=== PATIENT | male | born 1965 | race Caucasian/White ===

== ENCOUNTER → 2020-12-17 06:51 | Outpatient (CLI) | payer OTHER, SELFPAY ==
[2020-12-17 20:53] LABS: SARS-CoV-2 RNA PCR Negative
== END ==
PROVIDERS: PCP Internal Medicine; Visit Provider Internal Medicine Gastroenterology
DX: Z01.812 Encounter for preprocedural laboratory examination (principal); Z20.822 Contact with and (suspected) exposure to COVID-19
CPT/HCPCS: C9803; U0003; U0005

== ENCOUNTER 2020-12-21 04:49 | Day surgery (SDC) | payer OTHER, SELFPAY ==
[2020-12-14 11:21] VITALS: BMI 34.0
[2020-12-21 08:55] VITALS: BP 97/76; PULSE 100; RESP 20; TEMP 36.1; O2SAT 98
[2020-12-21] MEDS: LACTATED RINGERS 1,000 ML 150 ML IV CONT (09:05)
--- NOTE | 2020-12-21 09:17 | WPDANESEPPF ---
Anes - Initial Pre Proc Eval Procedure: Operation Date: 12/21/20 10:00 Proposed Procedures p Esophagogastroduodenoscopy And Screening Colonoscopy - Agustin Landin MD Date/Time: 12/21/20 09:17 Surgeon: Agustin Landin MD Pre Op Diagnosis: neoplasm screening, dysphagia Patient Data Age: 55 Gender: M Height: 5 ft 9 in Weight: 96.2 kg Last Vital Signs Temp 97.0 F L 12/21/20 08:55 Pulse 100 12/21/20 08:55 Resp 20 12/21/20 08:55 BP 97/76 L 12/21/20 08:55 Pulse Ox 98 12/21/20 08:55 Allergies Allergy/AdvReac Type Severity Reaction Status Date / Time No Known Allergies Allergy Verified 12/21/20 08:52 Home Medications Medication Instructions Recorded Confirmed Type hydrocodone-acetaminophen 3 tablet PO TID 12/14/20 12/14/20 History lisinopril 20 mg PO DAILY 12/14/20 12/14/20 History Patient hx anesthesia problems: none Family hx anesthesia problems: none [facility] Past Medical History Medical History (Updated 12/21/20 @ 09:11 by Ravinder Kent MD) Hypertension Social History Social History (Updated 12/02/20 @ 14:24 by Agustin Landin MD) Smoking packs per day: 2 Smoking cigarettes per day: 40.0 Years smoked: 38 Smoking pack-years: 76.00 Smoking status: Former smoker Substance use type: does not use Living arrangements: with family Gender identity (if verbalized by the patient): Male Anes - Eval Final PreProcedure Day of Procedure 12/21/20 09:17 Patient weight: overweight Heart: regular rate and rhythm Lungs: clear to auscultation Airway: Mallampati scale class II Neurological: alert and oriented Last oral intake: >/= 8 hours ASA classification: II Emergent: no Anesthetic plan: proceed Anesthesia type and monitoring: general GIVS and standard monitoring Informed Consent: The patient's anesthetic plan and its attendant risks and benefits were discussed with the patient/family/POA. Questions were solicited and answers provided to the satisfaction of the patient/family/POA.
--- NOTE | 2020-12-21 09:28 | PM.HPGS ---
History of Present Illness History of Present Illness Consent: Risks, benefits, and alternatives have been discussed and questions answered. Patient agrees to proceed with procedure. Chief complaint: neoplasm screening, dysphagia Narrative: Amor Nazario is a 55 year old male with dysphagia for solid food. This began about 1 year ago. He has a history of having had a stricture dilated about 10 years ago. He is also due for colon cancer screening Review of Systems Review of Systems: All systems reviewed & are unremarkable except as noted in HPI and below PMFSH Past Medical History Medical History Hypertension Social History Social History Smoking packs per day: 2 Smoking cigarettes per day: 40.0 Years smoked: 38 Smoking pack-years: 76.00 Smoking status: Former smoker Substance use type: does not use Living arrangements: with family Gender identity (if verbalized by the patient): Male Meds Home Medications and Allergies Home Medications Medication Instructions Recorded Confirmed Type hydrocodone-acetaminophen 3 tablet PO TID 12/14/20 12/14/20 History lisinopril 20 mg PO DAILY 12/14/20 12/14/20 History Allergies Allergy/AdvReac Type Severity Reaction Status Date / Time No Known Allergies Allergy Verified 12/21/20 08:52 Vital Signs Vital Signs - 24 hr 12/21/20 08:55 Temperature 36.1 C L Pulse Rate 100 Respiratory Rate 20 Blood Pressure 97/76 L Pulse Oximetry 98 Exam Const: General: alert Orientation/consciousness: patient oriented x3 Resp: Auscultation: clear to auscultation bilaterally Cardio: Rhythm: regular rhythm GI: GI Palp: Yes Soft to palpation and No Tenderness to palpation present (GI) Neuro: General: patient oriented x3 Assessment and Plan Assessment and plan (1) Colon cancer screening: Code(s): Z12.11 - Encounter for screening for malignant neoplasm of colon Status: Acute Assessment and Plan: Colonoscopy with possible biopsy or polypectomy or cautery or injection of substances. (2) Dysphagia: Code(s): R13.10 - Dysphagia, unspecified Status: Acute Assessment and Plan: EGD with possible biopsy or dilatation or cautery.
[2020-12-21 09:35] VITALS: BP 125/79
--- NOTE | 2020-12-21 09:35 | SUR.PREOP ---
FIRST BLOOD PRESSURE 97/76, PT TOOK LISINOPRIL THIS AM. PT ASSYMPTOMATIC AND STATES I FEEL FINE. DR ZAMORA MADE AWARE. NS BOLUS 500ML GIVEN PER ORDERS. REPEAT BLOOD PRESSURE 125/79. DR ZAMORA AWARE. NO NEW ORDERS
[2020-12-21 10:10] VITALS: BP 113/76; PULSE 98; RESP 22; O2SAT 96
[2020-12-21 10:20] VITALS: BP 114/79; PULSE 76; RESP 20; O2SAT 98
[2020-12-21 10:30] VITALS: BP 118/83; PULSE 80; RESP 22; O2SAT 97
== END 2020-12-21 10:53 | disposition home or self-care (01) ==
PROVIDERS: PCP Internal Medicine; Visit Provider Internal Medicine Gastroenterology
PROC: 0DJ08ZZ Inspection of Upper Intestinal Tract, Via Natural or Artificial Opening Endoscopic (ICD-10-PCS; CPT 43235; principal; 2020-12-21 10:00)
DX: Z12.11 Encounter for screening for malignant neoplasm of colon (principal); R13.10 Dysphagia, unspecified; D12.4 Benign neoplasm of descending colon; K22.2 Esophageal obstruction; K20.90 Esophagitis, unspecified without bleeding; K29.70 Gastritis, unspecified, without bleeding; K57.30 Diverticulosis of large intestine without perforation or abscess without bleeding; I10 Essential (primary) hypertension; Z87.891 Personal history of nicotine dependence
CPT/HCPCS: 43249; 43239; 45380; 87081; 88305; C1726; C9803; J2001; J2704; J7120; U0003; U0005

== ENCOUNTER 2021-02-08 18:54 | Inpatient (IN) | payer OTHER, SELFPAY ==
[2021-02-08] VITALS (22 sets, daily range): BP systolic 89–131; BP diastolic 57–72; PULSE 78–107; RESP 18–26; TEMP 36.7; O2SAT 96–100; BMI 28.3
--- NOTE | ~2021-02-08 | XR_ITS ---
XR chest 2V DATE: 02/08/2021 19:19 INDICATION: Shortness of breath, dizziness. Patient works around chemicals/fumes. Hypertension. TECHNIQUE: PA and lateral views COMPARISON: 03/11/2014 AP and lateral chest FINDINGS: Normal heart size. No hilar or mediastinal enlargement. There is minimal atelectasis at the lung bases. No pulmonary infiltrate or consolidation is noted ot herwise. No pleural effusion or pulmonary vascular congestion or pneumothorax. Degenerative spurring of the thoracic spine. IMPRESSION: Minimal atelectasis at the lung bases Reviewed, dictated and finalized at location A.
--- NOTE | ~2021-02-08 | US_ITS ---
US renal BI 02/09/2021 09:50 Procedure: Realtime transabdominal ultrasound of the kidneys and bladder. Indication: Dehydration. Acute renal insufficiency. Comparison: No prior studies for comparison. Findings: The left kidney is absent. Right kidney is enlarged measuring 17.2 cm. There are 2 hyperech oic areas in the medullary space of the right kidney with posterior shadowing, possibly renal stones. The bladder is not distended for evaluation due to catheterization. No hydronephrosis is identified. Impression: 1: Echogenic foci in the medullary space, possibly renal stones. Recommend correlation with CT. Reviewed, dictated and finalized at location A. Impression: 1: Echogenic foci in the medullary space, possibly renal stones. Recommend luis carlos elation with CT.
--- NOTE | 2021-02-08 19:00 | ECG_ITS ---
Measurements Intervals [place] Rate: 96 P: 18 AK: 160 QRS: -1 QRSD: 93 T: 21 QT: 290 QTc: 368 Interpretive Statements SINUS RHYTHM PEAKED T WAVES- CONSIDER HYPERKALEMIA OR ISCHEMIA BASELINE WANDER- II, III, V2, V4 ABNORMAL ECG Electronically Signed On 02-08-2021 19:41:30 CDT by Igor Adair D.O.
[2021-02-08 19:23] LABS: Basophils Absolute Auto 0.1 K/mm3 (0.0-0.1); Basophils Percent Auto 0.5 % (0.2-1.2); Eosinophils Percent Auto 0.3 % (0-4.4); Hematocrit 43.8 % (42.0-52.0); Hemoglobin 14.7 g/dL (14.0-18.0); Immature Granulocyte Absolute 0.13 K/mm3 (0.00-0.031); Immature Granulocyte Percent A 1.1 % (0-0.5); Lymphocytes Absolute Auto 0.71 K/mm3 (0.9-3.2); Lymphocytes Percent Auto 6.1 % (18.3-44.2); Mean Corpuscular HGB Conc 33.6 g/dl (32-36); Mean Corpuscular Hemoglobin 31.6 pg (26-34); Mean Corpuscular Volume 94.2 fl (80-100); Mean Platelet Volume 10.3 fl (7.4-10.4); Monocytes Absolute Auto 1.3 K/mm3 (0.1-0.6); Monocytes Percent Auto 11.5 % (2.6-8.5); Neutrophils Absolute Auto 9.3 K/mm3 (1.3-6.7); Neutrophils Percent Auto 80.5 % (45.5-73.1); Platelet Count Result 226 k/mm3 (150-375); Red Blood Count 4.65 M/mm3 (4.6-6.20); White Blood Count 11.6 K/mm3 (4.5-10.0)
[2021-02-08 19:41] LABS: Alanine Aminotransferase 19 U/L (4-50); Albumin Level 4.5 g/dL (3.5-5.1); Alkaline Phosphatase 50 U/L (38-126); Anion Gap 23 mmol/L (8-16); Aspartate Amino Transferase 23 U/L (17-59); Bilirubin,Total 0.4 mg/dL (0.2-1.3); Blood Urea Nitrogen 112 mg/dL (9-20); Calcium 7.7 mg/dL (8.4-10.2); Carbon Dioxide 17 mmol/L (22-30); Chloride 91 mmol/L (98-107); Estimated CRCL calculation 8 ml/min; Estimated Glomerular Filt Rate 5; Glucose 106 mg/dL (75-110); Potassium 6.9 mmol/L (3.4-5.0); Sodium 131 mmol/L (137-145)
[2021-02-08 20:22] LABS: Add Urine Microscopic? YES; Amorphous Sediment Urine Few; Appearance Urine Cloudy (Clear); Bacteria Urine Trace /hpf; Bilirubin Urine Negative (Negative); Blood Urine 1+ (Negative); Color Urine Amber (Yellow); Glucose Urine UA Negative (Negative); Ketones Urine Negative (Negative); Leukocyte Esterase Ur Trace LEU/UL (Negative); Mucus Urine Rare /lpf; Nitrate Urine Negative (Negative); Protein Urine 2+ mg/dL (Negative); Specific Grav Ur 1.021 (1.001-1.035); Squamous Epithelial Cell Urine Rare /hpf (Few); Urobilinogen Urine Negative mg/dL (<2.0)
[2021-02-08] MEDS: CALCIUM GLUCONATE 1,000 MG/10 ML VIAL 1000 MG IV PUSH (20:24)
[2021-02-08] MEDS: INSULIN HUMAN REGULAR (*BKC) 100 UNITS/ML 10 UNITS IV PUSH (20:24)
[2021-02-08] MEDS: DEXTROSE 50% 25 GM/50 ML SYRINGE IV PUSH (20:25)
[2021-02-08] MEDS: SODIUM CHLORIDE 0.9% IV 1,000 ML 999 ML IV CONT (20:25)
[2021-02-08] MEDS: SODIUM CHLORIDE 0.9% IV 1,000 ML 150 ML IV CONT (20:30)
[2021-02-08 20:47] LABS: Creatine Kinase 285 U/L (55-170)
[2021-02-08 20:53] LABS: Base Excess ABG -10.3 mEq/l (+/-2.0); Device ROOM AIR; Fractional Inspired Oxygen 21 %; HCO3 ABG 14.1 mEq/l (22.0-26.0); Oxygen Content ABG 18.9 %vol (16.0-22.0); Oxygen Saturation ABG 95.2 % (95.0-100.0); Oxyhemoglobin 94.3 % THb (90.0-100.0); PCO2 ABG 27.9 mmHg (35.0-45.0); PO2 ABG 80.3 mmHg (80.0-100.0); PO2 FiO2 Ratio Arterial Blood 3.82 %; Site Drawn RIGHT BRACHIAL; Total Hemoglobin 14.2 g/dL (12.0-18.0); pH ABG 7.322 (7.350-7.450)
--- NOTE | 2021-02-08 21:07 | PC.NURSE ---
Bladder scan shows 67 mls. Cuevas cath to be placed.
--- NOTE | 2021-02-08 21:23 | ED.DIZZY ---
HPI - Dizziness General Chief Complaint: Dizziness Stated Complaint: dizzy, dehydrated Time Seen by Provider: 02/08/21 20:11 Source: patient Mode of arrival: ambulatory Limitations: no limitations History of Present Illness HPI Narrative: 55-year-old with a history of hypertension and was born with one kidney here with complaints of dizziness since this morning. 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 He denies any chest pain, shortness of breath or abdominal pain. MD elicited complaint: dizziness Onset (ago): day(s) (1) Timing: gradual onset Severity: moderate Exacerbating factors: nothing Relieving factors: nothing Related Data Home Medications Medication Instructions Recorded Confirmed hydrocodone-acetaminophen 3 tablet PO TID 12/14/20 12/14/20 lisinopril 20 mg PO DAILY 12/14/20 12/14/20 Allergies Allergy/AdvReac Type Severity Reaction Status Date / Time No Known Allergies Allergy Verified 12/21/20 08:52 Review of Systems Review of Systems: All systems reviewed & are unremarkable except as noted in HPI and below Constitutional: Constitutional: Reports no additional constitutional complaints Eyes: Eyes: Reports no additional eye complaints ENT: Reports system reviewed and no additional complaints, except as documented Cardiovascular: Cardiovascular: Reports no additional cardiovascular complaints Respiratory: Respiratory: Reports no additional respiratory complaints Gastrointestinal: Gastrointestinal: Reports as per HPI Musculoskeletal: Musculoskeletal: Reports no additional musculoskeletal complaints Integumentary/Breasts: Skin/Breast: Reports system reviewed and no additional complaints, except as docu Neurologic: Reports system reviewed and no additional complaints, except as documented Endocrine: Endocrine: Reports no additional endocrine complaints [facility] Past Medical History Medical History Hypertension Social History Social History Smoking packs per day: 2 Smoking cigarettes per day: 40.0 Years smoked: 38 Smoking pack-years: 76.00 Smoking status: Former smoker Substance use type: does not use Gender identity (if verbalized by the patient): Male Exam Narrative: Exam Narrative: GENERAL: Well-appearing, well-nourished, and in no acute distress. HEAD: Normocephalic, atraumatic. EYES: PERRLA and EOMI. ENT: Nares clear, . Mucous membranes moist. NECK: Supple. CHEST: Clear to auscultation. No respiratory distress. HEART: Regular rate and rhythm. No murmur heard. Normal peripheral pulses. ABDOMEN: Soft, nontender, nondistended, normal active bowel sounds. EXTREMITIES: Normal range of motion. No edema. SKIN: Warm, dry, no rash. NEURO: No focal deficits. Alert and oriented x3. PSYCH: Normal mood and affect. Course Course Emergency Course: Inform patient about his lab work. Discussed case with Dr. Anthony recommended bicarb drip, discussed with Dr. Wesley and Dr. Armendariz and. Will admit him to ICU. Vital Signs Vital signs: Vital Signs Temperature 36.7 C 02/08/21 19:01 Pulse Rate 98 02/08/21 19:01 Respiratory Rate 21 H 02/08/21 19:01 Blood Pressure 110/60 02/08/21 19:01 Pulse Oximetry 98 02/08/21 19:01 Temperature 36.7 C 02/08/21 19:01 Pulse Rate 89 02/08/21 21:16 Respiratory Rate 24 H 02/08/21 21:16 Blood Pressure 131/63 02/08/21 21:16 Pulse Oximetry 98 02/08/21 21:00 MDM - Dizziness Lab Data Result diagrams: 02/08/21 19:05 02/08/21 19:05 Labs: Lab Results 02/08/21 02/08/21 02/08/21 Range/Units 19:05 19:05 19:05 WBC 11.6 H (4.5-10.0) K/mm3 RBC 4.65 (4.6-6.20) M/mm3 Hgb 14.7 (14.0-18.0) g/dL Hct 43.8 (42.0-52.0) % MCV 94.2 (80-100) fl
[2021-02-08] MEDS: SODIUM BICARBONATE 8.4% 50 MEQ/50 ML SYRINGE IV PUSH (21:24)
[2021-02-08] MEDS: SODIUM BICARBONATE 8.4% 150 MEQ in DEXTROSE 5% 1,000 ML 950 ML 100 MEQ IV CONT (21:45)
--- NOTE | 2021-02-08 23:26 | ADMIMU ---
This patient, Amor Nazario, was admitted to ICU status, and placed in Intensive Care Unit-7 on 02/08/21 at 2240. Patient/family oriented to hospital policies and general routines including ID bracelet, bed and alarms, visiting hours, pain management, procedures, bathroom and other care routines, personal items, smoking policy, room service/diet, and visiting hours. Information on how to activate the Rapid Response Team has been discussed. Patient/Family are encouraged to report perceived risks to care and to ask questions if they do not understand what they are told or what they should do.
--- NOTE | 2021-02-08 23:37 | PM.IMHP ---
H&P: HPI History of Present Illness Date/Time: 02/08/21 23:37 Chief Complaint: Dizziness, dehydration and weakness Narrative: 55-year-old male with past medical history of congenital unilateral kidney, low testosterone and hypertension who presented to the ER with dizziness, dehydration and weakness. 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 After couple hours of work he had to go inside and changes close. He has a changes close a total of 3 times due to the amount he was sweating. When he went inside changes close the 1st time he was already starting to have shaking and shortly thereafter began having muscle cramps. He reports that he lost 7 lb in 1 day due to sweating. He was drinking Gatorade and water. He thought he was drinking enough fluid. 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 He worked 12 hour days. Approximately 3 days ago he started having difficulty urinating. He was only urinating about a tbsp at a time in his urine was dark in color. He continued to be dizzy and generally weak throughout the entire course of his illness. He denied any dysuria or hematuria. He had developed the severe generalized headache 3 days ago was well. One day ago he began having severe nausea and dry heaves which ultimately brought him to the ER. He denies any fevers or chills. He has not had any cough or congestion. He denies chest pain or palpitations. He was having some shortness of breath in the ER but this is resolved after IV fluid hydration. The patient reports that his headache has also resolved after receiving IV fluids. He is already drink close to a L of water since admission. He has had about 700 mL out of his Cuevas catheter. He was told about 10 or 15 years ago that he had a unilateral kidney when he went in for evaluation due to hematuria. He reports that he has had ?scopes? to look at his bladder and kidneys before. He does not know which side his kidney is on. He received both of his COVID vaccines couple of months ago. He thinks he may have had COVID last spring. Review of Systems Review of Systems: Narrative: 12 systems were reviewed with pertinent positives and negatives per HPI. Except as documented in the HPI, all other systems were reviewed and are negative. [facility] Past Medical History Medical History (Updated 02/09/21 @ 00:43 by Analy Armendariz DO) Esophageal stricture Gastritis Hypertension Unilateral congenital absence of kidney Surgical History Surgical History (Updated 02/08/21 @ 23:41 by Analy Armendariz DO) History of colonoscopy with polypectomy (12/21/20) Diverticulosis and colon polyps. Performed by Dr. Landin S/P balloon dilatation of esophageal stricture (~12/21/20) Family History Family History (Updated 02/09/21 @ 00:35 by Analy Armendariz DO) Father , 45 years old Lung cancer Smoker Asbestosis Sibling Leukemia, Onset Age: 55 Mother Smoker Lung cancer, Onset Age: 75 Social History Social History (Updated 02/09/21 @ 00:37 by Analy Armendariz DO) Social History: Of 25 years. He has 3 biologic daughters and 1 stepdaughter. He is 6 grand children. 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 He smoked up to 2 packs per day for 35 years but quit smoking in 2018. Primary care physician: Dr. Domingo Garcia Code status: Full code Surrogate decision maker: Smoking packs per day: 2 Smoking cigarettes per day: 40.0 Years smoked: 30 Smoking pack-years: 60.00 Smoking status: Former smoker Tobacco type: cigarettes Alcohol intake: current Drinks per week: 14 Substance use: never Substance use type: does not use Other substance usage details: drinks 2-3 beers a day Gender identity (if verbalized by the patient): Male Spiritual care concerns: No Meds Home Medications and Allergies Home Medications
[2021-02-08 23:49] LABS: Anion Gap 20 mmol/L (8-16); Blood Urea Nitrogen 114 mg/dL (9-20); Calcium 7.3 mg/dL (8.4-10.2); Carbon Dioxide 17 mmol/L (22-30); Chloride 93 mmol/L (98-107); Estimated CRCL calculation 8 ml/min; Estimated Glomerular Filt Rate 6; Glucose 97 mg/dL (75-110); Potassium 4.9 mmol/L (3.4-5.0); Sodium 130 mmol/L (137-145)
[2021-02-09] VITALS (11 sets, daily range): BP systolic 117–173; BP diastolic 62–76; PULSE 77–88; RESP 14–21; TEMP 36.5–37.2; O2SAT 90–99
[2021-02-09 04:52] LABS: Hematocrit 43.3 % (42.0-52.0); Mean Corpuscular HGB Conc 32.3 g/dl (32-36); Mean Corpuscular Hemoglobin 31.6 pg (26-34); Mean Corpuscular Volume 97.7 fl (80-100); Mean Platelet Volume 10.8 fl (7.4-10.4); Platelet Count Result 155 k/mm3 (150-375); Red Blood Count 4.43 M/mm3 (4.6-6.20); Red Cell Distribution Width 12.7 % (11.5-14.5)
[2021-02-09] MEDS: SODIUM BICARBONATE 8.4% 150 MEQ in DEXTROSE 5% 1,000 ML 950 ML IV CONT (05:14)
[2021-02-09 07:11] LABS: Anion Gap 14 mmol/L (8-16); Blood Urea Nitrogen 104 mg/dL (9-20); Calcium 7.4 mg/dL (8.4-10.2); Carbon Dioxide 22 mmol/L (22-30); Chloride 98 mmol/L (98-107); Estimated CRCL calculation 15 ml/min; Estimated Glomerular Filt Rate 10; Glucose 103 mg/dL (75-110); Magnesium 2.7 mg/dL (1.6-2.3); Phosphorus 7.1 mg/dL (2.5-4.5); Potassium 4.4 mmol/L (3.4-5.0); Sodium 134 mmol/L (137-145)
[2021-02-09] MEDS: HYDROcodone/acetaminophen (*CRX) 7.5-325 MG TABLET 3 TAB PO (08:37)
[2021-02-09] MEDS: SODIUM CHLORIDE 0.9% IV 500 ML IV CONT (08:39)
[2021-02-09] MEDS: PANTOPRAZOLE 40 MG TABLET PO ×2 (08:42→16:22)
--- NOTE | 2021-02-09 09:10 | WPDCNINT ---
Assessment and Plan Assessment and plan (1) JOSEP (acute kidney injury): Code(s): N17.9 - Acute kidney failure, unspecified Status: Acute Assessment and Plan: Acute kidney injury likely related to dehydration, excessive sweating, decreased p.o. intake, presence of only onekidney -patient was adequately hydrated, creatinine and BUN trending down -acidosis has resolved which was likely due to uremia -patient has had excellent urine output -nephrology is following the patient -renal ultrasound has been ordered -continue monitor urine output, renal function electrolytes (2) Acute hyperkalemia: Code(s): E87.5 - Hyperkalemia Status: Acute Assessment and Plan: Patient was treated with sodium bicarbonate and Kayexalate for hyperkalemia -hyperkalemia improved this morning with a potassium of 4.4 (3) High anion gap metabolic acidosis: Code(s): E87.2 - Acidosis Status: Acute Assessment and Plan: Resolved Additional Plan Discussed with patient updated with his condition and plan of care I also updated with lab results. Code status: Full code Critical care time spent: 39 minutes This dictation may have been done utilizing a voice recognition system. Attempts have been made to correct errors. However, there may be uncorrected grammatical, spelling, and recognition errors present. Due to a high probability of clinically significant, life threatening deterioration, the patient required my highest level of preparedness to intervene emergently and I personally spent this critical care time directly and personally managing the patient. This critical care time included obtaining a history; examining the patient; pulse oximetry; ordering and review of studies; arranging urgent treatment with development of a management plan; evaluation of patient's response to treatment; frequent reassessment; and discussions with other providers. It was exclusive of separately billable procedures and treating other patients and teaching time. Please see Assessment and Plan section and the rest of the note for further information on patient assessment and treatment Dietitian Chief Consult Note Consult date: 02/09/21 Time Seen: 07:06 Reason for consult: Acute kidney injury, hyperkalemia, hypovolemia, weakness HPI: Amor Nazario is a 55 year old male with past medical history of esophageal stricture, gastritis, hypertension, unilateral congenital absence of kidney presented the ED with generalized weakness, dehydration, dizziness, oliguria. Patient also complained of nausea and muscle cramps. According the patient he has been doing some yd work and landscaping at home been out in the heat. 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 He has been having difficulty urinating, as stated he probably urinate about tbsp at a time. Urine was dark in color. In the ER was found to be in acute renal failure with a creatinine 11.1 BUN of 112, sodium of 131, potassium 6.9 and CO2 of 17. Patient received IV fluids, Kayexalate and was started on sodium bicarbonate maintenance IV fluids. Nephrology has been consulted and patient was transferred to the ICU for further management. Patient seen and examined this morning, states he feels much better, urine output has been good, creatinine down to 5.90 (11.10 on admission), BUN is 104. CO2 is 22. Patient remains on sodium bicarb infusion. Denies any abdominal pain, nausea, vomiting, cramps. Does complain of headache. Patient is hemodynamically stable, on room air with good O2 sats Review of Systems Review of Systems: All systems reviewed & are unremarkable except as noted in HPI and below [facility] Past Medical History Medical History (Updated 02/09/21 @ 00:43 by Analy Armendariz DO) Esophageal stricture Gastritis Hypertension Unilateral congenital absence of kidney Surgical History Surgical History (Updated 02/08/21 @ 23:41 by Siva
--- NOTE | 2021-02-09 12:43 | PM.CNNEP ---
Assessment and Plan Additional Plan Acute kidney injury: the patient has a very high BUN and creatinine. On physical exam and by history it sounds like he was dehydrated. He has been getting IV fluids. His urine output has picked up and his creatinine has come down. He only has a solitary kidney but this should physiologically act like he had two kidneys since he was born with only 1 kidney because the other kidney generally hypertrophies to make up for it. His ultrasound did not show hydronephrosis but it did show echogenic focus in the renal pelvis possibly stone? Consider CT down the line. His CPK was only mildly elevated so rhabdo is not playing a role in his renal disease. Other possibilities for etiology include glomerulonephritis and interstitial nephritis but I think these are unlikely in this clinical scenario. Hyperkalemia: His potassium was 6.9 on admission. He received some Kayexalate and other interventions and his potassium is normal now metabolic acidosis: He had a positive anion gap. This was most likely due to the uremic toxins. He received some bicarbonate. This is improved. His bicarbonate level is now 22. His anion gap is now down to 14. Hyponatremia: Sodium level is slightly low, probably from the dehydration and water drinking. Gastritis. The patient is on a PPI Esophageal stricture status post recent dilatation. Hypertension. His blood pressures been well controlled. This is been going on for about 3 years. he is a former smoker. History of Present Illness Reason for Consult Consult date: 02/09/21 Chief Complaint Chief complaint: JOSEP, Hyperkalemia History of Present Illness Narrative: Amor is a very pleasant 55-year-old gentleman who has hypertension, esophageal stricture status post dilatation a few weeks ago, congenital solitary kidney, and gastritis. A few weeks ago he had endoscopies and colonoscopy which were uneventful. He had a dilatation of his esophagus but otherwise things were okay according to him. On Saturday the patient did lots of landscaping at his house. He felt poorly by the end of the day. He did a little more landscaping on Saturday apparently and felt worse. He drink lots of fluid thinking he was dehydrated. He went to work on Saturday and felt poorly all day. His urged him to go to the emergency room or least get checked out but he refused to go. This continued until yesterday when he felt bad enough to just go to the hospital. He was evaluated in the emergency room and found to be dehydrated. his blood pressure was somewhat soft and even dipped into the 80s at 1 point. His labs showed high BUN creatinine and potassium and low bicarbonate. He was given IV fluids and admitted to the ICU. He says he was not making much urine before he came in but he started making urine since he got fluids. He was taking Advil p.m. every night to help him cell sleep including during this illness. No bloody urine, foamy urine, kidney stones, or bladder infections. He was born with only 1 kidney. He used to smoke but does not anymore. He does not drink alcohol. Review of Systems Constitutional: Constitutional: Reports no additional constitutional complaints Eyes: Eyes: Reports no additional eye complaints ENT: Reports system reviewed and no additional complaints, except as documented Cardiovascular: Cardiovascular: Reports no additional cardiovascular complaints Respiratory: Respiratory: Reports no additional respiratory complaints Gastrointestinal: Gastrointestinal: Reports no additional gastrointestinal complaints Genitourinary: Genitourinary: Reports no additional male genitourinary complaints Musculoskeletal: Musculoskeletal: Reports no additional musculoskeletal complaints Integumentary/Breasts: Skin/Breast: Reports system reviewed and no additional complaints, except as docu Neurologic: Reports system reviewed and no additional com
[2021-02-09] MEDS: SODIUM CHLORIDE 0.9% IV 1,000 ML 100 ML IV CONT ×2 (13:05→22:39)
[2021-02-09] MEDS: HYDROcodone/acetaminophen (*CRX) 7.5-325 MG TABLET 1 TAB PO (16:16)
--- NOTE | 2021-02-09 17:57 | PC.NURSE ---
This patient, Amor Nazario, was transferred to [facility] on 02/09/21 at 1750 via wheelchair without issue. Personal belongings sent with patient. Report given to JAY Steel @ [id number]. Appropriate documentation sent with patient.
[2021-02-09] MEDS: ACETAMINOPHEN 325 MG TABLET 650 MG PO (18:36)
[2021-02-09] MEDS: amLODIPine BESYLATE 5 MG TABLET 10 MG PO (20:23)
[2021-02-10] MEDS: HYDROcodone/acetaminophen (*CRX) 7.5-325 MG TABLET 1 TAB PO ×2 (00:08→08:17)
[2021-02-10 04:19] VITALS: BP 134/68; PULSE 72; RESP 18; TEMP 37.1; O2SAT 97
[2021-02-10] MEDS: ACETAMINOPHEN 325 MG TABLET 650 MG PO (05:05)
[2021-02-10 05:59] LABS: Basophils Absolute Auto 0.1 K/mm3 (0.0-0.1); Eosinophils Absolute Auto 0.1 K/mm3 (0-0.3); Eosinophils Percent Auto 1.4 % (0-4.4); Hematocrit 41.3 % (42.0-52.0); Hemoglobin 13.7 g/dL (14.0-18.0); Immature Granulocyte Absolute 0.05 K/mm3 (0.00-0.031); Immature Granulocyte Percent A 0.7 % (0-0.5); Lymphocytes Absolute Auto 1.44 K/mm3 (0.9-3.2); Lymphocytes Percent Auto 20.5 % (18.3-44.2); Mean Corpuscular HGB Conc 33.2 g/dl (32-36); Mean Corpuscular Hemoglobin 31.9 pg (26-34); Mean Platelet Volume 10.5 fl (7.4-10.4); Monocytes Absolute Auto 0.9 K/mm3 (0.1-0.6); Monocytes Percent Auto 13.2 % (2.6-8.5); Neutrophils Absolute Auto 4.4 K/mm3 (1.3-6.7); Neutrophils Percent Auto 63.2 % (45.5-73.1); Platelet Count Result 221 k/mm3 (150-375)
[2021-02-10 06:21] LABS: Albumin Level 3.6 g/dL (3.5-5.1); Anion Gap 8 mmol/L (8-16); Blood Urea Nitrogen 40 mg/dL (9-20); Calcium 8.1 mg/dL (8.4-10.2); Carbon Dioxide 27 mmol/L (22-30); Chloride 105 mmol/L (98-107); Estimated CRCL calculation 57 ml/min; Estimated Glomerular Filt Rate 48; Glucose 99 mg/dL (75-110); Magnesium 2.6 mg/dL (1.6-2.3); Potassium 5.5 mmol/L (3.4-5.0); Sodium 140 mmol/L (137-145)
[2021-02-10] MEDS: amLODIPine BESYLATE 5 MG TABLET 10 MG PO (08:10)
[2021-02-10] MEDS: PANTOPRAZOLE 40 MG TABLET PO (08:10)
[2021-02-10] MEDS: SODIUM CHLORIDE 0.9% IV 1,000 ML 100 ML IV CONT (08:12)
[2021-02-10 08:31] VITALS: O2SAT 96
--- NOTE | 2021-02-10 12:53 | PM.DS ---
DS: Admitting Diagnosis Admitting Diagnosis Admitting Diagnosis: Dizziness, dehydration and weakness DS: Discharge Diagnosis Discharge Diagnosis (1) JOSEP (acute kidney injury): Code(s): N17.9 - Acute kidney failure, unspecified Status: Acute Assessment and Plan: Acute kidney injury likely related to dehydration, excessive sweating, decreased p.o. intake, presence of only one kidney. Renal us shows Left kidney is absent and R kidney has stones pt will benefit from rpt BMp and CT scan. (2) Acute hyperkalemia: Code(s): E87.5 - Hyperkalemia Status: Resolved Assessment and Plan: Resolved with Kalexate (3) High anion gap metabolic acidosis: Code(s): E87.2 - Acidosis Status: Resolved Assessment and Plan: Resolved with fluids DS: Summary Hospital Course Hospital Course: 55-year-old male with past medical history of congenital unilateral kidney, low testosterone and hypertension who presented to the ER with dizziness, dehydration and weakness. Pt did well with fluid hydration. Can be discharged today. Time Spent with Patient Time attestation: Total time spent providing and/or coordinating discharge services:40 minutes on day of dischrage Exam Narrative: Exam Narrative: PHYSICAL EXAM: General: No acute distress Respiratory: Clear to auscultation bilaterally, no increased work of breathing Cardiovascular: Regular rate, regular rhythm, 2+ bilateral radial pedal pulses Gastrointestinal: Soft, nontender, nondistended, positive bowel sounds Musculoskeletal: No clubbing, cyanosis or edema Neurological: Alert and oriented, speech is clear, no localizing neurologic deficits noted on limited exam Psychiatric: Appropriate mood and affect, pleasant and cooperative DS: Data Data Completed and Pending Labs on day of discharge: Labs from last 24 hours 02/10/21 02/10/21 05:31 05:31 WBC 7.0 RBC 4.30 L Hgb 13.7 L Hct 41.3 L MCV 96.0 MCH 31.9 MCHC 33.2 RDW 13.0 Plt Count 221 MPV 10.5 H Immature Gran % (Auto) 0.7 H Neut % (Auto) 63.2 Lymph % (Auto) 20.5 [place] % (Auto) 13.2 H Eos % (Auto) 1.4 Baso % (Auto) 1.0 Lymph # (Auto) 1.44 [place] # (Auto) 0.9 H Eos # (Auto) 0.1 Baso # (Auto) 0.1 Abs Immat Gran (auto) 0.05 H Absolute Neuts (auto) 4.4 Absolute Nucleated RBC 0.0 Nucleated RBC % 0.0 Sodium 140 Potassium 5.5 H Chloride 105 Carbon Dioxide 27 Anion Gap 8 BUN 40 H D Creatinine 1.50 H D Estim Creat Clear Calc 57 Estimated GFR 48 L Glucose 99 Calcium 8.1 L Phosphorus 3.0 Magnesium 2.6 H Albumin 3.6 Discharge Plan Discharge Attending physician on discharge: Seema Lowe Consulting providers: Parviz Anthony ; Susi Foley Discharging Clinician: Seema Lowe Anticipated Discharge Date/Time: 02/10/21 12:06 Patient Disposition: Home, Self-Care Activity: as tolerated Diet: heart healthy Discharge Instructions: DRINK PLENTY OF WATER Patient Instructions: Antibiotic Form Stand Alone Forms: General Discharge Information Follow-up/Referrals: Jose,Domingo Soto MD [Primary Care Provider] - Girish Forrester MD [Physician] - (FOLLOW IN 2-3 weeks time RPT [facility] at that time ) Discharge Medications: New amlodipine [Norvasc] 5 mg Tablet 10 mg PO QAM Qty: 30 RF: 0 Continued Xyosted 50 mg/0.5 mL auto-injector 50 mg SUBCUT WEEKLY RF: 0 lisinopril 20 mg tablet 20 mg PO DAILY RF: 0 hydrocodone-acetaminophen 7.5-325 mg tablet 1 tablet PO Q8H PRN (Reason: Pain, Moderate) RF: 0 omeprazole 40 mg capsule,delayed release(DR/EC) 40 mg PO DAILY Qty: 90 RF: 1 Date of admission: 02/08/21 21:39 Primary Care Provider: Manfred,Domingo Soto Admitting Provider: Analy Armendariz Attending physician on admission: Analy Armendariz Condition: Stable
[2021-02-10] MEDS: SODIUM POLYSTYRENE SULFONONATE 15 GM/60 ML BTL PO (13:10)
== END 2021-02-10 14:30 | disposition home or self-care (01) | DRG 683 ==
LOC: ANHED 21:38 → ANHICU 02-09 09:46 → ANH2MED 02-10 12:32 → ANHICU 02-14 12:19
PROVIDERS: Emergency Medicine Emergency Medical Services; Internal Medicine; Admitting Provider Internal Medicine; Emergency Provider Family Medicine; PCP Internal Medicine; Visit Provider Family Medicine
DX: N17.9 Acute kidney failure, unspecified (principal); E87.2 Acidosis; Q60.0 Renal agenesis, unilateral; E86.0 Dehydration; E87.5 Hyperkalemia; I10 Essential (primary) hypertension; K29.70 Gastritis, unspecified, without bleeding; Z87.891 Personal history of nicotine dependence
CPT/HCPCS: 36415; 36600; 71046; 76775; 80048; 80053; 81001; 82040; 82550; 82805; 83735; 84100; 85025; 85027; 93005; 96361; 96374; 96375; 99285; A9270; J0610; J1815; J7030; J7040; J7070

== ENCOUNTER 2022-08-10 10:42 | Outpatient (CLI) | payer OTHER, SELFPAY ==
--- NOTE | ~2022-08-10 | CT_ITS ---
EXAMINATION: CT soft tissue neck w con DATE: 08/10/2022 11:19 INDICATION: Localized swelling, mass and lump, neck. Mass in left parotid gland. TECHNIQUE: Computed tomography (CT) of the neck was performed with 100 mL Omnipaque-350 intravenous c ontrast. Automated exposure control and iterative reconstruction technique were employed. The dose-le ngth product was 446.55 mGy-cm. COMPARISON: CT cervical spine 03/11/2014 FINDINGS: There is a 17 mm nodule in right thyroid lobe. There are enlarged bilateral high and mid in ternal jugular and left submandibular lymph nodes. Some of the lymph nodes demonstrate calcifications . 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 There is plaque in the proximal internal carotid arteries with 0% stenosis relative to normal distal artery l umen diameters. There is mucosal thickening in the pharynx and supraglottic larynx. There is mild muc osal thickening in the paranasal sinuses. The mastoid air cells are normal. There is moderate cervica l spondylosis. IMPRESSION: 1. Bilateral cervical lymphadenopathy, consistent with metastatic disease. Ultrasound-guided core nee dle biopsy of a left internal jugular lymph node is recommended. 2. Mucosal thickening in the pharynx and supraglottic larynx, which may be inflammation and/or malign jay. 3. 17 mm right thyroid nodule. Consider thyroid ultrasound for risk stratification. Reviewed, dictated and finalized at location A. ITY SYSTEM REPAIRER IMPRESSION: 1. Bilateral cervical lymphadenopathy, consistent with metastatic disease. Ultr asound-guided core needle biopsy of a left internal jugular lymph node is recom mended. 2. Mucosal thickening in the pharynx and supraglottic larynx, which may be infl ammation and/or malignancy. 3. 17 mm right thyroid nodule. Consider thyroid ultrasound for risk stratificat ion.
--- NOTE | ~2022-08-10 | CT_ITS ---
Contrast enhanced Head CT History: Localized swelling, mass Technique: Following intravenous administration of 100 cc of Omnipaque 350 contrast material, axial i maging of the brain was performed. Dose reduction technique was used on this scan by utilizing automa mikhail exposure control and iterative reconstruction technique. The dose-length product (DLP) was 599.57 mGy-cm. Findings: There is no evidence of intracranial hemorrhage, mass lesion, or acute infarct. Brain par enchyma appears normal. The ventricles and subarachnoid spaces are normal in size. The calvarium ap pears normal. The visualized paranasal sinuses and mastoid air cells are clear. No abnormal postcontrast enhancement identified. Impression: No significant abnormality seen. Reviewed, dictated and finalized at location [] UNT RECEIVABLE ASSOCIATE Impression: No significant abnormality seen.
--- NOTE | ~2022-08-10 | CT_ITS ---
EXAMINATION: CT lung screening DATE: 08/10/2022 11:19 INDICATION: Personal history of nicotine dependence, current smoker with 56 pack year history TECHNIQUE: Computed tomography (CT) of the chest was performed without intravenous contrast. The dose -length product (DLP) was 260.99 mGy-cm. Automated exposure control and iterative reconstruction tech [place] were employed. COMPARISON: None FINDINGS: Respiratory motion artifact moderately limits the examination. There is mild emphysema. No definite suspicious pulmonary nodules are identified. The lungs are free of acute opacities. No pleur al effusion or pneumothorax. There is calcified coronary artery atherosclerosis. No pathologically en larged thoracic lymph nodes are identified. The heart size is normal. There is moderate thoracic spon dylosis. IMPRESSION: 1. Lung-RADS category 1: Negative. Continue annual screening with noncontrast low-dose chest CT in 12 months. Reviewed, dictated and finalized at location A. GER CORPORATE STRATEGY IMPRESSION: 1. Lung-RADS category 1: Negative. Continue annual screening with noncontrast l ow-dose chest CT in 12 months.
[2022-08-10 11:01] LABS: Estimated Glomerular Filt Rate > 60
== END 2022-08-10 10:43 ==
LOC: MICIMG 10:43
PROVIDERS: PCP Internal Medicine; Visit Provider Internal Medicine
DX: R22.1 Localized swelling, mass and lump, neck (principal); Z12.2 Encounter for screening for malignant neoplasm of respiratory organs; Z87.891 Personal history of nicotine dependence
CPT/HCPCS: 70460; 70491; 71271; Q9967

== ENCOUNTER 2022-09-03 10:59 | Outpatient (CLI) | payer OTHER, SELFPAY ==
--- NOTE | ~2022-09-03 | US_ITS ---
EXAMINATION: US biopsy lymph node DATE: 09/03/2022 12:09 INDICATION: Cervical lymphadenopathy TECHNIQUE: The procedure including the risks and benefits was discussed with the patient. Risks discu ssed included bleeding and infection. The patient understood the risks and agreed to proceed. The sk in overlying the left neck was prepped and draped in usual sterile fashion. Anesthetic was administe red with 1% lidocaine subcutaneously. An 18 gauge core biopsy needle was advanced under continuous u ltrasound observation to the lesion of interest. 4 core biopsy specimens were obtained. The needle was removed and the entry site was cleaned and dressed. Post procedure ultrasound demonstrated no he morrhage. FINDINGS: Ultrasound images a 2.2 x 2.2 x 2.1 cm hypoechoic mass with irregular lobular margins along side an enlarged round 1.5 x 1.5 x 1.4 cm more hypoechoic lymph node. Subsequent images demonstrate the biopsy needle advanced into the larger more irregular mass. The needle is also passed to the fred cent lymph node on the final biopsy. IMPRESSION: 1. Successful Ultrasound-guided biopsy of an irregular 2.2 x 2.2 x 2.1 cm hypoechoic mass and adjacen t 1.5 cm left jugular chain lymph node. Reviewed, dictated and finalized at location A. K BOLTER MULE OPERATOR IMPRESSION: 1. Successful Ultrasound-guided biopsy of an irregular 2.2 x 2.2 x 2.1 cm hypoe choic mass and adjacent 1.5 cm left jugular chain lymph node.
== END 2022-09-03 11:00 | disposition home or self-care (01) ==
PROVIDERS: PCP Internal Medicine; Visit Provider Otolaryngology
DX: R59.0 Localized enlarged lymph nodes (principal); E04.1 Nontoxic single thyroid nodule; C44.42 Squamous cell carcinoma of skin of scalp and neck
CPT/HCPCS: 38505; 76942; 88305; 88342

== ENCOUNTER 2022-09-10 08:56 | Outpatient (RCR) | payer OTHER, SELFPAY ==
--- NOTE | 2022-09-10 11:01 | STOPEVAL1 ---
Assessment and note entered by Viola Esqueda, LUBRICATING SPECIALIST Evaluation Information Assessment Status Evaluation Diagnosis Oralpharyngeal dysphagia Onset appr. one year Subjective Information Patient and , who was present for this assessment, report complaints of sinus issues and and TMJ issues for approximately one year. They reported that he began experience sharp pain in the jaw when he had to chew, and he feels that his jaw (was going) out of alignment and therefore has to stop eating. When asked what he did to improve the jaw alignment, he stated it just returned to normal later. Patient reports his left jaw has always been swollen for the past year. reports patient uses mouth breathing when sleeping therefore difficulty breathing and sleeping comfortably. Today the patient reported he feels his sinuses are stuffed up and this has affected his voice and ease of swallowing. Patient and report patient has had history of having throat stretched (EGD) about two-three years ago due to complaints of choking. At this time, patient is becoming choked more often, having a difficult time getting bread down but that everything he's eating has a hard time getting down. reports patient continues to take large bites of [id number] foods such as meats and breads, and continue to eat quickly in spite of her request to slow down. She characterizes her and stubborn and wanting to do what he wants to do in spite of her instruction for small bites and avoiding certain foods. Patient stated that today I can breathe through them (nostrils), and his reported that his voice sounds like he has a golf ball in there. reports that patient's voice always sounds muffled and this has been occurring for the past year. Patient reports that in the past month including yesterday, he was attempting to swallow pills with chocolate milk and some of it came out of his nose. Patient reports a loss of about 30 pounds. An oncology referral has been made to [facility] for referral to assess for the cancer and
== END 2022-09-11 15:08 | disposition home or self-care (01) ==
LOC: ANHST 08:56
PROVIDERS: PCP Internal Medicine; Visit Provider Otolaryngology
DX: R13.12 Dysphagia, oropharyngeal phase (principal)
CPT/HCPCS: 92610

== ENCOUNTER 2023-02-16 01:23 | Emergency (ER) | payer OTHER, SELFPAY ==
--- NOTE | ~2023-02-16 | XR_ITS ---
CORRECTED REPORT [place] [facility] [place] This report was recreated on 02/18/23. Original report was XR abdomen NG/feed tube insert DATE: 02/16/2023 03:51 INDICATION: Gastrostomy tube placement TECHNIQUE: 2 AP views on 02/12/2023 at 0326 0327 hours COMPARISON: None FINDINGS: Radiopaque contrast material is noted within the lumen of the gastrostomy tube and within the gastric lumen, without evidence of extravasation. IMPRESSION: Gastrostomy tube in the body of the stomach Reviewed, dictated and finalized at Location [facility]. Reviewed, dictated and finalized at location A. MTDD
[2023-02-16 01:27] VITALS: BP 129/66; PULSE 85; RESP 19; TEMP 36.6; O2SAT 97
--- NOTE | 2023-02-16 02:32 | ED.GENADULT ---
HPI - General Adult General Chief complaint: Unspecified Stated complaint: Ripped out g-tube accidentally Time Seen by Provider: 02/16/23 01:35 History of Present Illness HPI narrative: 57-year-old male presented emerged department for evaluation after having his G-tube removed. Patient does have history of esophageal cancer and is primarily G-tube dependent. Patient noticed proximal 1 hour prior to arrival that his G-tube had been dislodged with the balloon intact. Related Data Home Medications Medication Instructions Recorded Confirmed testosterone enanthate 50 mg/0.5 50 mg subcut WEEKLY 02/08/21 08/15/21 mL subcutaneous auto-injector (Xyosted) Allergies Allergy/AdvReac Type Severity Reaction Status Date / Time No Known Allergies Allergy Verified 02/16/23 01:30 Review of Systems Review of Systems: All systems reviewed & are unremarkable except as noted in HPI and below PMFSH Past Medical History Medical History Esophageal stricture Gastritis Hypertension Unilateral congenital absence of kidney Surgical History Surgical History History of colonoscopy with polypectomy (12/21/20) Diverticulosis and colon polyps. Performed by Dr. Landin S/P balloon dilatation of esophageal stricture (~12/21/20) Family History Family History Father , 45 years old Lung cancer Smoker Asbestosis Sibling Leukemia, Onset Age: 55 Mother Smoker Lung cancer, Onset Age: 75 Social History Social History Social History: Of 25 years. He has 3 biologic daughters and 1 stepdaughter. He is 6 grand children. 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 He smoked up to 2 packs per day for 35 years but quit smoking in 2018. Primary care physician: Dr. Domingo Garcia Code status: Full code Surrogate decision maker: Smoking packs per day: 2 Smoking cigarettes per day: 40.0 Years smoked: 30 Smoking pack-years: 60.00 Smoking status: Former smoker Tobacco type: cigarettes Alcohol intake: current Drinks per week: 14 Substance use: never Substance use type: does not use Other substance usage details: drinks 2-3 beers a day Living arrangements: with family Gender identity (if verbalized by the patient): Male Spiritual care concerns: No Exam Narrative: APPEARANCE: Well appearing, no pain, no distress, well-nourished. HEAD: normocephalic, atraumatic. EYES: PERRLA/EOMI, conjunctivae clear. NOSE: Normal no drainage NECK: Supple. No adenopathy, no masses. RESPIRATORY: Airway patent, respirations nonlabored. Clear to auscultation bilaterally, no rales, rhonchi, wheezing. CARDIOVASCULAR: Regular rate and rhythm without murmurs rubs or gallops. ABDOMINAL: Soft, nontender, nondistended, normal bowel sounds MUSCULOSKELETAL: Moves all extremities. Strength/ROM intact, No edema, No calf tenderness. NEURO: Alert. Cranial nerves II through XII intact. Good gait. Good coordination SKIN: Warm, dry. Normal Color. G-tube site was well-appearing but was partially closed. PSYCHIATRIC: Normal affect/mood. Course Course Emergency Course: 57-year-old male presented the ED for evaluation after having his G-tube removed. Initially was unable to pass the 16 [place]. I was able to pass a 10 [place] catheter and then afterwards I was able to pass the 16 [place] G-tube. Confirmatory x-ray was ordered. X-ray did show successful placement of the G-tube. Patient was well-appearing edema discharge. Patient was encouraged of close follow-up with primary care physician. All question concerns were addressed Vital Signs Vital signs: Vital Signs Temperature 97.9 F 02/16/23 01:27 Pulse Rate 85 02/16/23 01:27 Respira
[2023-02-16 05:01] VITALS: BP 118/74; PULSE 84; RESP 17; O2SAT 95
== END 2023-02-16 05:02 | disposition home or self-care (01) ==
PROVIDERS: Emergency Provider Emergency Medicine; PCP Internal Medicine
DX: Z43.1 Encounter for attention to gastrostomy (principal); I10 Essential (primary) hypertension; Z85.01 Personal history of malignant neoplasm of esophagus; Z87.891 Personal history of nicotine dependence; Q60.0 Renal agenesis, unilateral
CPT/HCPCS: 43762; 49450; 99283

== ENCOUNTER 2023-02-16 06:22 | Emergency (ER) | payer OTHER, SELFPAY ==
--- NOTE | ~2023-02-16 | XR_ITS ---
CORRECTED REPORT exam description change [facility] 02/18/23 This report was recreated on 02/18/23. Original report was XR abdomen NG/feed tube insert DATE: 02/16/2023 07:16 INDICATION: Gastrostomy tube replacement TECHNIQUE: Portable supine AP view on 02/12/2023 at 0706 hours COMPARISON: None FINDINGS: A gastrostomy tube is noted in the body of the stomach, balloon inflated. Contrast material is noted in the gastrostomy tube and gastric lumen; no extravasation of contrast material from the gastric lumen is noted. IMPRESSION: Gastrostomy tube in body of stomach Reviewed, dictated and finalized at Location [facility]. Reviewed, dictated and finalized at location A. MTDD
[2023-02-16 06:25] VITALS: BP 137/73; PULSE 99; RESP 18; TEMP 36.6; O2SAT 98
[2023-02-16] MEDS: HYDROmorphone HCL INJ (*CRX) 1 MG/ML SYR IM (06:39)
--- NOTE | 2023-02-16 06:44 | ED.GENADULT ---
HPI - General Adult General Chief complaint: Unspecified <Parker Oden MD - Last Filed: 02/16/23 07:09> Stated complaint: G-tube fell back out <Parker Oden MD - Last Filed: 02/16/23 07:09> Time Seen by Provider: 02/16/23 06:34 <Parker Oden MD - Last Filed: 02/16/23 07:09> History of Present Illness HPI narrative: 57-year-old male return to the ED for his G-tube being dislodged again. Patient states after he got home he took off his shirt and the G-tube was out. <Parker Oden MD - Last Filed: 02/16/23 07:09> Related Data Home medications: Home Medications Medication Instructions Recorded Confirmed testosterone enanthate 50 mg/0.5 50 mg subcut WEEKLY 02/08/21 08/15/21 mL subcutaneous auto-injector (Xyosted) <Parker Oden MD - Last Filed: 02/16/23 07:09> Allergies/adverse reactions: Allergies Allergy/AdvReac Type Severity Reaction Status Date / Time No Known Allergies Allergy Verified 02/16/23 01:30 <Parker Oden MD - Last Filed: 02/16/23 07:09> Review of Systems Review of Systems: All systems reviewed & are unremarkable except as noted in HPI and below <Parker Oden MD - Last Filed: 02/16/23 07:09> [facility] Past Medical History Medical History: Medical History Esophageal stricture Gastritis Hypertension Unilateral congenital absence of kidney <Parker Oden MD - Last Filed: 02/16/23 07:09> Surgical History Surgical History: Surgical History History of colonoscopy with polypectomy (12/21/20) Diverticulosis and colon polyps. Performed by Dr. Landin S/P balloon dilatation of esophageal stricture (~12/21/20) <Parker Oden MD - Last Filed: 02/16/23 07:09> Family History Family History: Family History Father , 45 years old Lung cancer Smoker Asbestosis Sibling Leukemia, Onset Age: 55 Mother Smoker Lung cancer, Onset Age: 75 <Parker Oden MD - Last Filed: 02/16/23 07:09> Social History Social History: Social History Social History: Of 25 years. He has 3 biologic daughters and 1 stepdaughter. He is 6 grand children. 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 He drinks 2-3 beers a day. He smoked up to 2 packs per day for 35 years but quit smoking in 2018. Primary care physician: Dr. Domingo Garcia Code status: Full code Surrogate decision maker: Smoking packs per day: 2 Smoking cigarettes per day: 40.0 Years smoked: 30 Smoking pack-years: 60.00 Smoking status: Former smoker Tobacco type: cigarettes Alcohol intake: current Drinks per week: 14 Substance use: never Substance use type: does not use Other substance usage details: drinks 2-3 beers a day Living arrangements: with family Gender identity (if verbalized by the patient): Male Spiritual care concerns: No <Parker Oden MD - Last Filed: 02/16/23 07:09> Exam Narrative: APPEARANCE: Uncomfortable due to esophageal cancer pain HEAD: normocephalic, atraumatic. EYES: PERRLA/EOMI, conjunctivae clear. NOSE: Normal no drainage NECK: Supple. No adenopathy, no masses. RESPIRATORY: Airway patent, respirations nonlabored. Clear to auscultation bilaterally, no rales, rhonchi, wheezing. CARDIOVASCULAR: Regular rate and rhythm without murmurs rubs or gallops. ABDOMINAL: G-tube site is well-appearing MUSCULOSKELETAL: Moves all extremities. Strength/ROM intact, No edema, No calf tenderness. NEURO: Alert. Cranial nerves II through XII intact. Grossly intact SKIN: Warm, dry. Normal Color <Parekr Oden MD - Last Filed: 02/16/23 07:09> Course Course Emergency Course: 57-year-old male returning to the emergency department
[2023-02-16 07:11] VITALS: BP 122/64; PULSE 83; RESP 20; O2SAT 94
== END 2023-02-16 08:56 | disposition home or self-care (01) ==
PROVIDERS: Emergency Provider Preventive Medicine Aerospace Medicine; PCP Internal Medicine
DX: Z43.1 Encounter for attention to gastrostomy (principal); I10 Essential (primary) hypertension; Q60.0 Renal agenesis, unilateral; Z87.891 Personal history of nicotine dependence
CPT/HCPCS: 43762; 49450; 96372; 99283; J1170

== ENCOUNTER 2023-05-28 21:03 | Emergency (ER) | payer OTHER, SELFPAY ==
--- NOTE | ~2023-05-28 | CT_ITS ---
EXAMINATION: CT brain wo con DATE: 05/28/2023 22:38 INDICATION: Altered mental status. TECHNIQUE: Computed tomography (CT) of the head was performed without intravenous contrast. The mA wa s adjusted according to patient size. Iterative reconstruction technique was employed. The dose-lengt h product was 1362.00 mGy-cm. COMPARISON: Head CT 08/10/2022 FINDINGS: There is no intracranial hemorrhage, acute infarction, or abnormal intracranial mass lesion . The ventricles are normal in size. There is mild mucosal thickening in the paranasal sinuses. The o rbits are normal. There are are small bilateral mastoid effusions. IMPRESSION: 1. Normal brain. Reviewed, dictated and finalized at location E. IMPRESSION: 1. Normal brain.
--- NOTE | ~2023-05-28 | XR_ITS ---
EXAMINATION: XR chest 1V DATE: 05/28/2023 22:40 INDICATION: Altered mental status. Tonsillar cancer. TECHNIQUE: A single frontal view of the chest was obtained. COMPARISON: Chest 2 views 02/08/2021 FINDINGS: There is mild elevation of right hemidiaphragm. No pneumonia, pleural effusion, or pneumoth orax. The heart size is normal. IMPRESSION: 1. Mild elevation of right hemidiaphragm. Reviewed, dictated and finalized at location E.
[2023-05-28 21:04] VITALS: BP 133/85; PULSE 99; RESP 20; O2SAT 94
[2023-05-28 21:11] LABS: Glucose Point of Care 94 mg/dl (65-105)
--- NOTE | 2023-05-28 21:23 | ECG_ITS ---
Measurements Intervals [place] Rate: 100 P: 52 OK: 160 QRS: 6 QRSD: 92 T: 50 QT: 328 QTc: 424 Interpretive Statements SINUS TACHYCARDIA ABNORMAL RHYTHM ECG COMPARED TO ECG 02/08/2021 19:07:12 SINUS TACHYCARDIA NOW PRESENT Electronically Signed On 05-29-2023 15:41:57 CDT by Danisha Sauer M.D.
--- NOTE | 2023-05-28 21:26 | ED.AMS ---
HPI - Altered Mental Status General Chief Complaint: Altered Mental Status Stated Complaint: AMS Time Seen by Provider: 05/28/23 21:06 History of Present Illness HPI narrative: Patient brought to the emergency department by EMS. His daughters found him unresponsive and altered at home. Both daughters are medically trained. One of the daughters lives with him and states that he was normal this morning. He has throat and neck cancer. Takes oxycodone and has a fentanyl patch. However he did not take his oxycodone today and also did not put his daily patch on. He has a history of putting vodka into his G-tube per the daughter. Related Data Home Medications Medication Instructions Recorded Confirmed testosterone enanthate 50 mg/0.5 50 mg subcut WEEKLY 02/08/21 08/15/21 mL subcutaneous auto-injector (Xyosted) Allergies Allergy/AdvReac Type Severity Reaction Status Date / Time No Known Allergies Allergy Verified 05/28/23 21:16 Review of Systems Review of Systems: ROS unobtainable: Yes unobtainable due to medical condition and unobtainable due to mental status PMFSH Past Medical History Medical History Esophageal stricture Gastritis Hypertension Unilateral congenital absence of kidney Surgical History Surgical History History of colonoscopy with polypectomy (12/21/20) Diverticulosis and colon polyps. Performed by Dr. Landin S/P balloon dilatation of esophageal stricture (~12/21/20) Family History Family History Father , 45 years old Lung cancer Smoker Asbestosis Sibling Leukemia, Onset Age: 55 Mother Smoker Lung cancer, Onset Age: 75 Social History Social History Social History: Of 25 years. He has 3 biologic daughters and 1 stepdaughter. He is 6 grand children. 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 He smoked up to 2 packs per day for 35 years but quit smoking in 2018. Primary care physician: Dr. Domingo Garcia Code status: Full code Surrogate decision maker: Smoking packs per day: 2 Smoking cigarettes per day: 40.0 Years smoked: 30 Smoking pack-years: 60.00 Smoking status: Former smoker Tobacco type: cigarettes Alcohol intake: current Drinks per week: 14 Substance use: never Substance use type: does not use Other substance usage details: drinks 2-3 beers a day Living arrangements: with family Gender identity (if verbalized by the patient): Male Spiritual care concerns: No Exam Narrative: GENERAL: Patient lays with eyes closed on his left side. He is agitated. Does not open his eyes. Swinging at staff, trying to bite his blood pressure cuff HEAD: Normocephalic, atraumatic. EYES: PERRLA. cannot assess motion ENT: Nares clear, no rhinorrhea or epistaxis. Mucous membranes moist. NECK: Supple. CHEST: Clear to auscultation. No respiratory distress. HEART: Regular rate and rhythm. ABDOMEN: Soft, nontender, nondistended. EXTREMITIES: No edema. SKIN: Warm, dry, no rash. NEURO: Spontaneously moves all extremities with normal strength PSYCH: Normal mood and affect. Course Course Emergency Course: Patient wakes up easily with verbal stimulation and is very pleasant. Advised that his alcohol level was elevated and he is unsure how that happened Speech garbled due to history of cancer but he is appropriate. Once his gait is stable will DC to home with his daughters Vital Signs Vital signs: Vital Signs Pulse Rate 99 05/28/23 21:04 Respiratory Rate 20 05/28/23 21:04 Blood Pressure 133/85 05/28/23 21:04 Pulse Oximetry 94 05/28/23 21:04 Oxygen Delivery Room Air 05/28/23 21:04 Pulse Rate 102 H 05/29/23 00:38 Respiratory Rate
[2023-05-28 22:01] LABS: Base Excess ABG 5.7 mEq/l (+/-2.0); Fractional Inspired Oxygen 21 %; HCO3 ABG 31.8 mEq/l (22.0-26.0); Oxygen Content ABG 19.1 %vol (16.0-22.0); Oxygen Saturation ABG 94.5 % (95.0-100.0); Oxyhemoglobin 92.5 % THb (90.0-100.0); PCO2 ABG 51.7 mmHg (35.0-45.0); PO2 ABG 72.8 mmHg (80.0-100.0); PO2 FiO2 Ratio Arterial Blood 3.47 %; Total Hemoglobin 14.7 g/dL (12.0-18.0); pH ABG 7.407 (7.350-7.450)
[2023-05-28 22:02] LABS: Device ROOM AIR; Modified Allen's Test Pass; Site Drawn RIGHT RADIAL
[2023-05-28 22:20] LABS: Basophils Percent Auto 0.3 % (0.2-1.2); Eosinophils Percent Auto 0.2 % (0-4.4); Hematocrit 45.1 % (42.0-52.0); Hemoglobin 14.1 g/dL (14.0-18.0); Immature Granulocyte Absolute 0.07 K/mm3 (0.00-0.031); Immature Granulocyte Percent A 1.1 % (0-0.5); Lymphocytes Absolute Auto 0.54 K/mm3 (0.9-3.2); Lymphocytes Percent Auto 8.8 % (18.3-44.2); Mean Corpuscular HGB Conc 31.3 g/dl (32-36); Mean Corpuscular Hemoglobin 31.2 pg (26-34); Mean Corpuscular Volume 99.8 fl (80-100); Mean Platelet Volume 9.8 fl (7.4-10.4); Monocytes Absolute Auto 0.3 K/mm3 (0.1-0.6); Monocytes Percent Auto 4.9 % (2.6-8.5); Neutrophils Absolute Auto 5.2 K/mm3 (1.3-6.7); Neutrophils Percent Auto 84.7 % (45.5-73.1); Platelet Count Result 195 k/mm3 (150-375); Red Blood Count 4.52 M/mm3 (4.6-6.20); Red Cell Distribution Width 14.8 % (11.5-14.5); White Blood Count 6.2 K/mm3 (4.5-10.0)
[2023-05-28 22:21] LABS: Appearance Urine Clear (Clear); Bilirubin Urine Negative (Negative); Blood Urine Negative (Negative); Color Urine Yellow (Yellow); Glucose Urine UA Negative (Negative); Ketones Urine Negative (Negative); Leukocyte Esterase Ur Negative LEU/UL (Negative); Nitrate Urine Negative (Negative); Protein Urine Negative (Negative); Specific Grav Ur 1.004 (1.001-1.035); Urobilinogen Urine 0.2 mg/dL (<2.0); pH Urine 7.5 (5.0-9.0)
[2023-05-28 22:24] LABS: Add Urine Microscopic? NO
[2023-05-28 22:28] LABS: Alanine Aminotransferase 25 U/L (6-50); Albumin Level 4.4 g/dL (3.5-5.1); Alkaline Phosphatase 52 U/L (38-126); Anion Gap 7 mmol/L (8-16); Aspartate Amino Transferase 23 U/L (17-59); Bilirubin,Total 0.3 mg/dL (0.2-1.3); Blood Urea Nitrogen 16 mg/dL (9-20); Carbon Dioxide 34 mmol/L (22-30); Chloride 105 mmol/L (98-107); Creatine Kinase 37 U/L (55-170); Estimated CRCL calculation 94 ml/min; Estimated Glomerular Filt Rate > 60; Glucose 101 mg/dL (65-110); INR 0.9; Lactic Acid Reflex 1.3 mmol/L (0.7-2.0); Prothrombin Time 12.3 Seconds (11.1-14.7); Sodium 146 mmol/L (137-145)
[2023-05-28 22:37] LABS: Amphetamine Screen Urine Positive (Negative); Barbiturate Screen Urine Negative (Negative); Benzodiazepines Screen Urine Negative (Negative); Cannabinoid Screen Urine Negative (Negative); Cocaine Screen Urine Negative (Negative); Methadone Screen Urine Negative (Negative); Opiate Screen Urine Negative (Negative); Phencyclidine Screen Urine Negative (Negative)
[2023-05-28 22:39] LABS: Troponin I < 0.012 ng/mL (0.000-0.034)
[2023-05-28 23:05] LABS: Acetaminophen < 10 ug/mL (10-30); Salicylate < 1.0 mg/dL (2-20)
[2023-05-28 23:13] LABS: Ethanol 322 mg/dL (<10)
[2023-05-29 00:22] VITALS: BP 111/73; PULSE 104; RESP 17; O2SAT 95
[2023-05-29 00:38] VITALS: PULSE 102
[2023-05-29 02:06] LABS: Troponin I < 0.012 ng/mL (0.000-0.034)
[2023-05-29] MEDS: ACETAMINOPHEN 325 MG TABLET 650 MG PO (06:48)
[2023-05-29 06:55] VITALS: BP 116/81; PULSE 100; RESP 17; O2SAT 99
--- NOTE | 2023-05-29 07:57 | PC.NURSE ---
Discharge instructions discussed with daughter. Out of dept per wc.
== END 2023-05-29 07:57 | disposition home or self-care (01) ==
PROVIDERS: Emergency Provider Emergency Medicine; PCP Internal Medicine
DX: F10.120 Alcohol abuse with intoxication, uncomplicated (principal); Y90.8 Blood alcohol level of 240 mg/100 ml or more; R40.1 Stupor; C11.1 Malignant neoplasm of posterior wall of nasopharynx; I10 Essential (primary) hypertension; Q60.0 Renal agenesis, unilateral; Z93.1 Gastrostomy status; Z87.891 Personal history of nicotine dependence; Z86.010 Personal history of colon polyps; R00.0 Tachycardia, unspecified
CPT/HCPCS: 36415; 36600; 70450; 71045; 80053; 80307; 81003; 82550; 82805; 82948; 83605; 84484; 85025; 85610; 93005; 99284; A9270